=== PATIENT | female | born 1945 | race Caucasian/White ===

== ENCOUNTER 2017-04-21 12:54 | Emergency (ER) | END 2017-04-21 20:55 | disposition left against medical advice (07) ==

== ENCOUNTER 2017-06-03 10:38 | Inpatient (IN) | END 2017-06-10 13:20 | disposition home health service (06) | DRG 233 ==

== ENCOUNTER 2017-08-30 10:15 | Emergency (ER) | END 2017-08-30 15:57 | disposition home or self-care (01) ==